=== PATIENT | female | born 1970 | race Hispanic/Latino ===

== ENCOUNTER 2017-07-11 11:37 | Day surgery (SDC) | payer OTHER ==
[2017-07-10 10:26] VITALS: BMI 21.4
[2017-07-11 12:32] LABS: HEMOGLOBIN 13.4 g/dL (12.0-16.0); MEAN CELL VOLUME 94.1 fl (81.0-99.0); MEAN CORPUSCULAR HEMOGLOBIN 31.9 pg (27.0-31.0); MEAN CORPUSCULAR HGB CONC 33.9 g/dL (33.0-37.0); RBC 4.19 Mil/uL (3.80-5.20); RED CELL DISTRIBUTION WIDTH 12.3 % (11.5-14.5); WHITE BLOOD COUNT 6.1 K/uL (4.8-10.8)
[2017-07-11 12:52] VITALS: RESP 18
[2017-07-11] MEDS ORDERED: Bupivacaine 0.5% Inj(30mL) ONE (14:23)
[2017-07-11] MEDS ORDERED: Rocuronium 10 mg/ml (5 ml) ONE (14:24)
[2017-07-11] MEDS ORDERED: Propofol 10 mg/ml Inj (20 ML) ONE (14:24)
[2017-07-11] MEDS ORDERED: Succinylcholine 200 mg/10 ml Inj IV ONE (14:24)
[2017-07-11] MEDS ORDERED: Lidocaine 4% (Laryng-O-Jet) Kit MM ONE (14:25)
[2017-07-11] MEDS ORDERED: Phenylephrine 10 mg/ml Inj ONE (14:31)
[2017-07-11] MEDS ORDERED: Dexamethasone 4 mg/1 ml ONE (14:32)
[2017-07-11] MEDS ORDERED: Midazolam 2 MG/2 ML VIAL ONE (15:12)
[2017-07-11] MEDS ORDERED: Lactated Ringer's 1,000 ML IV ONE ×2 (15:12→17:28)
[2017-07-11] MEDS ORDERED: Lactated Ringer's 500 ML IV ONE (15:34)
[2017-07-11] MEDS ORDERED: Bupivacaine 0.5% 50 ML IJ ONE ×2 (15:34)
[2017-07-11] MEDS ORDERED: Desflurane Inhalation Anesthetic Liq (240 ml) ONE (15:35)
[2017-07-11] MEDS ORDERED: HYDROmorphone 0.5 mg/0.5 ml ISec IVP PRN (16:38)
[2017-07-11] MEDS ORDERED: Oxycodone/Acetaminophen 5/325 mg Tab PO PRN (16:40)
[2017-07-11] MEDS ORDERED: Lactated Ringer's 1,000 ML IV SCH ×2 (16:45)
[2017-07-11 17:52] VITALS: O2SAT 99
[2017-07-11 18:47] VITALS: BP 103/66; PULSE 50; TEMP 98
--- NOTE | 2017-07-15 09:50 | PCM.OP ---
Operative Report - Operative Report Date of Surgery/Procedure: 07/11/17 Time of Surgery/Procedure: 08:00 Surgeon: Dr. Braden Keller Lobby Concierge: Dr. Rhett Evans Anesthesia/Sedation: general/Dr. Villanueva Pre-Operative Diagnosis: abdominal pain and endometriosis Post-Operative Diagnosis: adhesions from endometriosis Indication for Surgery: as above Operative Findings: significantr adhesions from endometriosis Procedure/Operation Description: 1-Extessnive lysis of intestinal bowel adhesions. Brief Histroy: This 46 year old woman was already explored with the robot when she was noted to have significant bowel adhesions obstruction the pelvic floor. Dr. Evans requested intraoperative general surgery consultation. Description of the Procedure: The patient had already had intiated the robotic procedure by Dr. Evans (separate didctaion Dr. Evans). After taking control of the robotic console the plvic adhesions with the large bowel sigmoid and rectum were lysed with blunt and sharp dissection with the aid of electrocautery. Once the adhesions were cleared and the bowel was bale to be retracted cephalad the plevic floo was now open for the ramoiender fo the procedure. the operation was then turned over to Dr. Evans (separate dictation Dr. Evans). Estimated Blood Loss: 5 cc Complications: none Discharge & Condition: stable
--- NOTE | 2017-07-23 18:45 | OP ---
PROCEDURE DATE: 07/11/2017 PREOPERATIVE DIAGNOSES: Pelvic pain, dysmenorrhea, dyspareunia, rule out endometriosis. POSTOPERATIVE DIAGNOSES: Pelvic pain, dysmenorrhea, dyspareunia, rule out endometriosis and pelvic adhesions. PROCEDURE PERFORMED: Cystoscopy with bilateral ureteral catheterization, hysteroscopy, lysis of adhesions with separate lysis of adhesions to be dictated by Dr. Braden Keller from General Surgery and peritoneal ablation utilizing plasma energy. SURGEON: Rhett Evans MD SUPERVISOR DIAGNOSTIC: Braden Keller MD TYPE OF ANESTHESIA: General endotracheal. ESTIMATED BLOOD LOSS: Minimal. COMPLICATIONS: None. DESCRIPTION OF PROCEDURE: After adequate anesthesia was obtained, the patient was placed in dorsal lithotomy position. She was prepped and draped. The surgeons were gowned and gloved. A time out was taken according to the hospital regulations and the procedure was started. A cystoscope was inserted into the bladder under direct visualization. The bladder was visualizing, there appeared to be no masses or lesions in the bladder. Both the ureters were in the normal anatomical position. The left ureter was then catheterized all the way to the distal ureter utilizing a 5-Occitan stent and 5 mL of Indocyanine Green was injected. Similarly on the right ureter, the ureter was cannulated and it was up to the distal ureter and 5 mL of IC-green was injected. At this point, catheters were retrieved and a Vo was placed in the vagina. At this point, attention was in the uterus where a speculum was placed in the vagina. The anterior lip of the cervix was grasped. The cervix was gently dilated and a hysteroscopy was performed revealing a normal cavity. At this point, attention was on the abdomen where an open laparoscopy was performed utilizing open laparoscopy technique. At this point, a cannula was inserted and the trocar was placed under direct visualization. The florescent technology using firefly was utilized. There appeared to be some adhesions between the colon which was firmly adherent to the posterior aspect of the uterus. This was secondary to the patient's prior salpingectomy. General Surgery took down those adhesions, Dr. Keller will dictate separately. At the same time, we observed that at that time of salpingectomy most likely the utero-ovarian ligament on the left hand side had been cut. After taking out these adhesions, we observed that they were also significant adhesions between the anterior bladder and the uterus. They were taken down utilizing plasma energy. At this point, the pelvis was inspected and peritonectomy was performed. Peritoneal destruction utilizing plasma energy, ablating a small areas. At this point, the full cul-de-sac was ablated throughout the procedure keeping the uterus in proper visualization. At this point, it was checked for hemostasis and appeared to be excellent. The instruments were removed. The abdomen was desufflated. The incision was closed in layer with 0 PDS for the fascia and 4-0 Monocryl for the skin. At the end of the procedure all tapes and instruments counts were correct. The patient tolerated the procedure well and was taken to the recovery room in excellent condition. Rhett Evans MD MTDD
== END 2017-07-11 19:40 | disposition home or self-care (01) ==
LOC: H.OPSURG 11:37
PROVIDERS: ATTEND Obstetrics & Gynecology Reproductive Endocrinology
DX: K66.0 Peritoneal adhesions (postprocedural) (postinfection) (principal); R10.2 Pelvic and perineal pain; N94.6 Dysmenorrhea, unspecified
CPT/HCPCS: 36415; 44180; 58563; 85027; 86850; 86900; C1729; J0330; J0690; J1100; J2001; J2250; J2370; J2405; J2704; J2765; J3010; J7030; J7040; J7120